=== PATIENT | female | born 1995 | race Caucasian/White ===

== ENCOUNTER 2016-10-09 10:15 | Emergency (ER) | payer MEDICAID ==
[2016-10-09 10:15] VITALS: BMI 21.2
[2016-10-09 10:47] VITALS: O2SAT 100
[2016-10-09] MEDS ORDERED: Sodium Chloride 0.9% 1,000 ML IV STA (11:53)
[2016-10-09 12:10] LABS: BASO % 0.5 % (0.0-2.0); EOS # 0.1 K/uL (0.0-0.7); EOS % 0.7 % (0.0-4.0); HEMATOCRIT 27.1 % (34.0-47.0); LYMPH # 0.7 K/uL (1.0-4.3); LYMPH % 9.5 % (20.0-40.0); MEAN CELL VOLUME 68.1 fL (81.0-99.0); MEAN CORPUSCULAR HEMOGLOBIN 20.6 pg (27.0-31.0); MEAN CORPUSCULAR HGB CONC 30.3 g/dL (33.0-37.0); MONO # 1.2 K/uL (0.0-0.8); RED CELL DISTRIBUTION WIDTH 17.1 % (11.5-14.5); WHITE BLOOD COUNT 7.8 K/uL (4.8-10.8)
[2016-10-09 12:13] LABS: PLATELET COUNT 292 K/uL (130-400)
[2016-10-09 12:15] LABS: CHLORIDE 102 mmol/L (98-107); POTASSIUM 3.8 mmol/L (3.6-5.2); SODIUM 136 mmol/L (132-148)
[2016-10-09 12:18] LABS: ALB/GLOB RATIO 1.1 (1.0-2.1); ALKALINE PHOSPHATASE 54 U/L (38-126); ALT/SGPT 45 U/L (9-52); AST/SGOT 41 U/L (14-36); BILIRUBIN,TOTAL 0.4 mg/dL (0.2-1.3); BLOOD UREA NITROGEN 13 mg/dL (7-17); CALCIUM 8.2 mg/dl (8.6-10.4); CARBON DIOXIDE 26 mmol/L (22-30); GFR AFRICAN-AMERICAN > 60; GLUCOSE,RANDOM 82 mg/dL (65-105); TOTAL PROTEIN 7.2 g/dL (6.3-8.3)
[2016-10-09 12:39] LABS: BASOPHIL 1 % (0-2); EOSINOPHIL 1 % (0-4); NEUTROPHIL 69 % (50-75); TOTAL CELLS COUNTED 100
[2016-10-09 12:52] LABS: RBC URINE 3 /hpf (0-3); URINE BILIRUBIN NEGATIVE (NEGATIVE); URINE BLOOD NEGATIVE (NEGATIVE); URINE COLOR Yellow (YELLOW); URINE GLUCOSE (UA) NORMAL (Normal); URINE KETONE NEGATIVE (NEGATIVE); URINE LEUKOCYTE ESTERASE NEG Leu/uL (Negative); URINE PROTEIN NEGATIVE (NEGATIVE); URINE UROBILINOGEN NORMAL mg/dL (0.2-1.0); WBC URINE 3 /hpf (0-5)
--- NOTE | 2016-10-09 13:20 | RAD ---
HISTORY: chest pain COMPARISON: Chest x-ray performed 06/07/16 TECHNIQUE: Chest PA and lateral FINDINGS: LUNGS: No focal consolidation. Please note that chest x-ray has limited sensitivity for the detection of pulmonary masses. PLEURA: No significant pleural effusion identified. No definite pneumothorax . CARDIOVASCULAR: The cardiomediastinal silhouette appears within normal limits of size. OSSEOUS STRUCTURES: No acute osseous abnormality identified. VISUALIZED UPPER ABDOMEN: Unremarkable. OTHER FINDINGS: None. IMPRESSION: No focal consolidation, significant pleural effusion, or definite pneumothorax identified.
--- NOTE | 2016-10-09 13:42 | C.PDOC ---
History Of Present Illness 20 yr old female presents to the ER stating she recently came back from vacation in [place] and has not been feeling well ever since. Patient reports of nausea, chest pain, upper abdominal pain and weakness. Patient states she was fine while in [place]. Patient reports history of iron deficiency and is taking iron. Denies fever, chills, vomiting, diarrhea, constipation, neck pain, headache, weakness or numbness. Time Seen by Provider: 10/09/16 11:15 Chief Complaint (Nursing): Dizziness/Lightheaded History Per: Patient History/Exam Limitations: no limitations Onset/Duration Of Symptoms: Days (3) Past Medical History Reviewed: Historical Data, Nursing Documentation, Vital Signs Vital Signs: Last Vital Signs Temp 98.3 F 10/09/16 15:56 Pulse 76 10/09/16 15:56 Resp 18 10/09/16 15:56 BP 104/68 10/09/16 15:56 Pulse Ox 100 10/09/16 15:56 - Medical History PMH: Anemia, Kidney Stones, Chronic Kidney Disease - [facility] Procedures PACKED CELL TRANSFUSION (12/02/13) Family History: States: No Known Family Hx - Social History Hx Tobacco Use: No Hx Alcohol Use: No Hx Substance Use: No - Immunization History Hx Tetanus Toxoid Vaccination: Yes Hx Influenza Vaccination: Yes Hx Pneumococcal Vaccination: No Review Of Systems Except As Marked, All Systems Reviewed And Found Negative. Constitutional: Positive for: Weakness. Negative for: Fever, Chills Cardiovascular: Positive for: Chest Pain Gastrointestinal: Positive for: Nausea, Abdominal Pain (Upper abdomin pain ). Negative for: Vomiting, Constipation Musculoskeletal: Negative for: Neck Pain Neurological: Negative for: Weakness, Numbness, Headache Physical Exam - Physical Exam Appears: Well, Non-toxic, No Acute Distress Skin: Warm, Dry, No Rash Head: Atraumatic, Normacephalic Oral Mucosa: Moist Chest: Symmetrical, No Tenderness Cardiovascular: Rhythm Regular, No Murmur Respiratory: Normal Breath Sounds, No Rales, No Wheezing Gastrointestinal/Abdominal: Soft, Tenderness (Epigastric tenderness ), No Guarding, No Rebound Extremity: Normal ROM, No Swelling ED Course And Treatment - Laboratory Results Result Diagrams: 10/09/16 11:58 10/09/16 11:58 ECG: Interpreted By Me, Viewed By Me ECG Rhythm: Sinus Rhythm ECG Interpretation: Normal Rate From EC (BPM) O2 Sat by Pulse Oximetry: 100 (RA) Pulse Ox Interpretation: Normal - Other Rad CXR X-Ray: Viewed By Me, Read By Radiologist Interpretation: HISTORY: chest pain. COMPARISON: Chest x-ray performed . TECHNIQUE: Chest PA and lateral. FINDINGS: LUNGS: No focal consolidation. Please note that chest x-ray has limited sensitivity for the detection of pulmonary masses. PLEURA: No significant pleural effusion identified. No definite pneumothorax . CARDIOVASCULAR: The cardiomediastinal silhouette appears within normal limits of size. OSSEOUS STRUCTURES: No acute osseous abnormality identified. VISUALIZED UPPER ABDOMEN: Unremarkable. OTHER FINDINGS: None. IMPRESSION: No focal consolidation, significant pleural effusion, or definite pneumothorax identified. - CT Scan/US US - Abdomen Other Rad Studies (CT/US): Read By Radiologist, Radiology Report Reviewed CT/US Interpretation: HISTORY: upper abdominal pain. COMPARISON: Abdominal ultrasound performed 06/07/16. TECHNIQUE: Sonographic evaluation of the right upper quadrant of the abdomen. FINDINGS: LIVER: Measures 16.9 cm in length and appears within normal limits of shape, size, and echotexture. No focal hepatic mass identified. The main portal vein appears patent with normal directional flow. No intrahepatic bile duct dilatation. GALLBLADDER: No gallstones. No gallbladder wall thickening or pericholecystic edema identified. Negative sonographic Morillo's sign as assessed by the business intern. COMMON BILE DUCT: Measures 3 mm. PANCREAS: Not well-visualized. RIGHT KIDNEY: Measures 12.7 x 4.0 x 6.9 cm. No obstructing calculus or hydronephrosis identified. AORTA: Limited visualization appears grossly unremarkable. IVC: Limited visualization appears grossly unremarkable. OTHER FINDINGS: None . IMPRESSION : No acute findings. See above. Medical Decision Making Medical Decision Making: PLAN: * US - Abdomen * CXR * EKG * CBC * CMP * D-Dimer * Troponin * HCG * Urinalysis * Sodium Chloride IV * * * On re-exam patient feels better, tolerates po and is stable to be d/c home with PMD follow up. Copies of all labs and radiology reports were given to the patient. Disposition - Disposition Disposition: HOME/ ROUTINE Disposition Time: 15:43 Condition: STABLE Additional Instructions: Follow up with PMD within 1-2 days. Return to ED if feel worse. Prescriptions: Pantoprazole Sodium [Protonix] 40 mg PO QAM #30 ect Instructions: Epigastric Pain (ED) - Clinical Impression Clinical Impression: Epigastric pain - PA / DIRECTOR OF OCCUPATIONAL HEALTH / Resident Statement MD/DO has reviewed & agrees with the documentation as recorded. - Scribe Statement The provider has reviewed the documentation as recorded by the Scribe Stephanie Zepeda All medical record entries made by the Scribe were at my direction and personally dictated by me. I have reviewed the chart and agree that the record accurately reflects my personal performance of the history, physical exam, medical decision making, and the department course for this patient. I have also personally directed, reviewed, and agree with the discharge instructions and disposition.
--- NOTE | 2016-10-09 14:08 | US ---
HISTORY: upper abdominal pain COMPARISON: Abdominal ultrasound performed 06/07/16 TECHNIQUE: Sonographic evaluation of the right upper quadrant of the abdomen. FINDINGS: LIVER: Measures 16.9 cm in length and appears within normal limits of shape, size, and echotexture. No focal hepatic mass identified. The main portal vein appears patent with normal directional flow. No intrahepatic bile duct dilatation. GALLBLADDER: No gallstones. No gallbladder wall thickening or pericholecystic edema identified. Negative sonographic Morillo's sign as assessed by the blueprint machine operator. COMMON BILE DUCT: Measures 3 mm. PANCREAS: Not well-visualized. RIGHT KIDNEY: Measures 12.7 x 4.0 x 6.9 cm. No obstructing calculus or hydronephrosis identified. AORTA: Limited visualization appears grossly unremarkable. IVC: Limited visualization appears grossly unremarkable. OTHER FINDINGS: None . IMPRESSION: No acute findings. See above.
[2016-10-09 14:27] VITALS: RESP 18
[2016-10-09 15:57] VITALS: BP 104/68; PULSE 76; TEMP 98.3
== END 2016-10-09 16:00 | disposition home or self-care (01) ==
LOC: C.ER 10:15
DX: R10.13 Epigastric pain (principal)
CPT/HCPCS: 71020; 76705; 80053; 81001; 82550; 82553; 84484; 84703; 85025; 85378; 86850; 86900; 96361; 96374; 99285; C9113; J7040

== ENCOUNTER 2016-10-13 17:01 | Emergency (ER) | payer MEDICAID ==
[2016-10-13 17:16] VITALS: BMI 22.0
[2016-10-13 17:17] VITALS: RESP 20
[2016-10-13 18:58] LABS: BASO % 0.8 % (0.0-2.0); EOS % 0.3 % (0.0-4.0); HEMATOCRIT 30.1 % (34.0-47.0); LYMPH # 1.2 K/uL (1.0-4.3); LYMPH % 21.6 % (20.0-40.0); MEAN CELL VOLUME 68.2 fL (81.0-99.0); MEAN CORPUSCULAR HEMOGLOBIN 20.6 pg (27.0-31.0); MEAN CORPUSCULAR HGB CONC 30.2 g/dL (33.0-37.0); MEAN PLATELET VOLUME 9.3 fL (7.2-11.7); MONO # 1.2 K/uL (0.0-0.8); MONO % 21.9 % (0.0-10.0); NRBC % 0.1 % (0.0-2.0); PLATELET COUNT 237 K/uL (130-400); RED CELL DISTRIBUTION WIDTH 17.1 % (11.5-14.5); WHITE BLOOD COUNT 5.4 K/uL (4.8-10.8)
[2016-10-13] MEDS ORDERED: Sodium Chloride 0.9% 1,000 ML IV ONE (19:04)
[2016-10-13 19:07] LABS: CHLORIDE 103 mmol/L (98-107); SODIUM 136 mmol/L (132-148)
[2016-10-13 19:09] LABS: ALB/GLOB RATIO 1.1 (1.0-2.1); ALKALINE PHOSPHATASE 50 U/L (38-126); AST/SGOT 38 U/L (14-36); BILIRUBIN,TOTAL 0.4 mg/dL (0.2-1.3); BLOOD UREA NITROGEN 11 mg/dL (7-17); CARBON DIOXIDE 23 mmol/L (22-30); GFR AFRICAN-AMERICAN > 60
[2016-10-13 19:10] LABS: ALT/SGPT 38 U/L (9-52); CALCIUM 8.6 mg/dl (8.6-10.4); GLUCOSE,RANDOM 76 mg/dL (65-105)
[2016-10-13] MEDS ORDERED: Sodium Chloride 0.9% 1,000 ML ONE (19:12)
[2016-10-13 19:13] LABS: RBC URINE 11 /hpf (0-3); URINE BACTERIA RARE (<OCC); URINE BILIRUBIN NEGATIVE (NEGATIVE); URINE BLOOD 1+ (NEGATIVE); URINE COLOR Yellow (YELLOW); URINE GLUCOSE (UA) NORMAL (Normal); URINE KETONE NEGATIVE (NEGATIVE); URINE LEUKOCYTE ESTERASE NEG Leu/uL (Negative); URINE PROTEIN 1+ mg/dL (NEGATIVE); URINE UROBILINOGEN NORMAL mg/dL (0.2-1.0); WBC URINE < 1 /hpf (0-5)
[2016-10-13 19:40] LABS: NEUTROPHIL 68 % (50-75); TOTAL CELLS COUNTED 100
--- NOTE | 2016-10-13 20:01 | C.PDOC ---
Time Seen by Provider: 10/13/16 18:58 Chief Complaint (Nursing): Abdominal Pain History Per: Patient Onset/Duration Of Symptoms: Days (2) Current Symptoms Are (Timing): Still Present Severity: Moderate Location Of Pain/Discomfort: Epigastric Quality Of Discomfort: Unable To Describe Associated Symptoms: Nausea, Vomiting, Diarrhea Exacerbating Factors: Food Alleviating Factors: None Last Bowel Movement: Today Recent travel outside of the [place]: Yes (to [facility]) Additional History Per: Prior Records Past Medical History Reviewed: Historical Data, Nursing Documentation, Vital Signs Vital Signs: Last Vital Signs Temp 98.5 F 10/13/16 17:15 Pulse 95 H 10/13/16 17:15 Resp 20 10/13/16 17:15 BP 120/75 10/13/16 17:15 Pulse Ox 100 10/13/16 17:15 - Medical History PMH: Anemia, Kidney Stones Surgical History: No Surg Hx - [facility] Procedures PACKED CELL TRANSFUSION (12/02/13) Family History: States: Unknown Family Hx - Social History Hx Tobacco Use: No Hx Alcohol Use: No Hx Substance Use: No - Immunization History Hx Tetanus Toxoid Vaccination: Yes Hx Influenza Vaccination: Yes Hx Pneumococcal Vaccination: No Review Of Systems Except As Marked, All Systems Reviewed And Found Negative. Constitutional: Negative for: Fever, Weakness ENT: Positive for: Nose Congestion. Negative for: Throat Pain Cardiovascular: Negative for: Chest Pain Respiratory: Positive for: Cough. Negative for: Shortness of Breath Gastrointestinal: Positive for: Nausea, Vomiting, Abdominal Pain, Diarrhea. Negative for: Melena, Hematochezia, Hematemesis Genitourinary: Negative for: Dysuria Musculoskeletal: Negative for: Neck Pain Skin: Negative for: Rash Neurological: Negative for: Weakness, Numbness, Seizures, Altered Mental Status , Headache Physical Exam - Physical Exam Appears: Non-toxic, No Acute Distress Skin: Normal Color, Warm, Dry, No Rash Head: Atraumatic, Normacephalic Eye(s): bilateral: PERRL, EOMI Neck: Normal ROM, Supple Cardiovascular: Rhythm Regular Respiratory: Normal Breath Sounds, No Accessory Muscle Use Gastrointestinal/Abdominal: Soft, Tenderness (mild epigastric), No Distention, No Guarding, No Rebound Back: No CVA Tenderness Extremity: Normal ROM Neurological/Psych: Oriented x3, Normal Motor, Normal Sensation ED Course And Treatment - Laboratory Results Result Diagrams: 10/13/16 18:53 10/13/16 18:53 Lab Interpretation: No Changes Compared To Prior Results Urine POC: Negative O2 Sat by Pulse Oximetry: 100 Pulse Ox Interpretation: Normal Progress Note: Pt feels much better and wants to go home. No abdominal pain or tenderness. Reassessment Condition: Improved Progress - Interventions Interventions:: Observation, Intravenous fluid - Medications Administered Intravenous: Antiemetic, H-2 morris - Data Reviewed Data Reviewed: Lab, Old records - Patient Status Patient status: Mostly improved - Continuity of Care Discussed patient case with:: Patient, Family-HIPPA compliant, ED Nurse - Patient Plan Patient Plan: Discharge, F/U with PCP, Continue present meds Disposition Counseled Patient/Family Regarding: Studies Performed, Diagnosis, Need For Followup, Rx Given - Disposition Referrals: Neftali Valle MD [Staff Provider] - Disposition: HOME/ ROUTINE Disposition Time: 20:01 Condition: IMPROVED Additional Instructions: Follow up with your doctor. Drink plenty of fluids. Return to the ER if you develop fever, not tolerating fluids, worsening of symptoms or if you have any other concerns. Prescriptions: Metoclopramide [Reglan] 1 tab PO TID PRN #15 tab PRN Reason: Nausea/Vomiting Instructions: Gastroenteritis (ED) Print Language: TAMAZIGHT - Clinical Impression Clinical Impression: Nausea vomiting and diarrhea, Abdominal pain
[2016-10-13 20:10] VITALS: BP 105/66; PULSE 77; TEMP 98.1; O2SAT 97
== END 2016-10-13 20:09 | disposition home or self-care (01) ==
LOC: C.ER 17:01
DX: R10.13 Epigastric pain (principal); R11.2 Nausea with vomiting, unspecified; R19.7 Diarrhea, unspecified
CPT/HCPCS: 80053; 81001; 83690; 84703; 85025; 87804; 96361; 96374; 96375; 99284; J2765; J7040

== ENCOUNTER 2016-11-08 12:19 | Observation (INO) | payer MEDICAID ==
[2016-11-08 12:19] VITALS: BMI 22.0
--- NOTE | 2016-11-08 13:19 | C.PDOC ---
History Of Present Illness 20 yr old female with PMHx of hypothyroidism, presents to the ER with complaints of dizziness as in weakness and mild headache for the past few days. Patient reports she was seen in ER last week for mild anemia. Patient also reports at times she also has palpitations. Patient denies recent travel, fever , vision changes, chest pain, SOB, nausea, vomiting, weakness or numbness. Time Seen by Provider: 11/08/16 13:02 Chief Complaint (Nursing): Dizziness/Lightheaded History Per: Patient History/Exam Limitations: no limitations Onset/Duration Of Symptoms: Days (Few days) Past Medical History Reviewed: Historical Data, Nursing Documentation, Vital Signs Vital Signs: Last Vital Signs Temp 98.6 F 11/08/16 12:38 Pulse 71 11/08/16 12:38 Resp 18 11/08/16 12:38 BP 124/72 11/08/16 12:38 Pulse Ox 100 11/08/16 14:37 - Medical History PMH: Anemia, Kidney Stones, Chronic Kidney Disease - [facility] Procedures PACKED CELL TRANSFUSION (12/02/13) Family History: States: No Known Family Hx - Social History Hx Tobacco Use: No Hx Alcohol Use: No Hx Substance Use: No - Immunization History Hx Tetanus Toxoid Vaccination: Yes Hx Influenza Vaccination: Yes Hx Pneumococcal Vaccination: No Review Of Systems Except As Marked, All Systems Reviewed And Found Negative. Constitutional: Positive for: Weakness. Negative for: Fever Eyes: Negative for: Vision Change Cardiovascular: Positive for: Palpitations (Occasionally ). Negative for: Chest Pain Gastrointestinal: Negative for: Nausea, Vomiting Neurological: Positive for: Headache (Mild), Dizziness. Negative for: Weakness , Numbness Physical Exam - Physical Exam Appears: Non-toxic, No Acute Distress Skin: Warm, Dry, Pale, No Rash Head: Atraumatic, Normacephalic Eye(s): bilateral: Normal Inspection, PERRL, EOMI Oral Mucosa: Moist Chest: Symmetrical, No Tenderness Cardiovascular: Rhythm Regular, No Murmur Respiratory: Normal Breath Sounds, No Rales, No Rhonchi, No Stridor, No Wheezing Gastrointestinal/Abdominal: Normal Exam, Soft, No Tenderness, No Guarding, No Rebound Extremity: Normal ROM, No Swelling Neurological/Psych: Oriented x3, Normal Speech, Normal Cranial Nerves, Normal Motor ED Course And Treatment - Laboratory Results Result Diagrams: 11/08/16 13:37 11/08/16 13:37 ECG: Interpreted By Me, Viewed By Me ECG Rhythm: Sinus Rhythm ECG Interpretation: Normal Interpretation Of ECG: No ST/T wave changes. Rate From EC (BPM) O2 Sat by Pulse Oximetry: 100 (RA) Pulse Ox Interpretation: Normal Medical Decision Making Medical Decision Making: r/o anemia, other infectious metabolic etiology PLAN: * CXR * EKG * CBC * CMP * HCG * Urinalysis 230: pt with known anemia, now worse than baseline. pt was advised to return to er as she is symptomatic. pt c/o of palpitations, dizziness, wekaness. will transfuse. dr cook accepts. pt agrees to transfusion. pt denies gi bleeding , states "she used ot get heavy periods" and has a "family history of anemiaa" 300: dr cook bedside. accepts pt Disposition - Disposition Disposition: HOSPITALIZED Disposition Time: 14:34 Condition: STABLE - Clinical Impression Clinical Impression: Symptomatic anemia - Scribe Statement The provider has reviewed the documentation as recorded by the Brice Zepeda Provider Attestation: All medical record entries made by the Luchoiblety were at my direction and personally dictated by me. I have reviewed the chart and agree that the record accurately reflects my personal performance of the history, physical exam, medical decision making, and the department course for this patient. I have also personally directed, reviewed, and agree with the discharge instructions and disposition. Decision To Admit - Pt Status Changed To: Hospital Disposition Of: Observation - . Bed Request Type: Regular Admitting Physician: Neftali Cook Patient Diagnosis: Symptomatic anemia
[2016-11-08 13:47] LABS: BASO % 0.6 % (0.0-2.0); EOS % 0.5 % (0.0-4.0); HEMOGLOBIN 8.5 g/dL (11.0-16.0); LYMPH % 16.4 % (20.0-40.0); MEAN CELL VOLUME 67.8 fL (81.0-99.0); MEAN CORPUSCULAR HEMOGLOBIN 20.6 pg (27.0-31.0); MEAN CORPUSCULAR HGB CONC 30.4 g/dL (33.0-37.0); MEAN PLATELET VOLUME 8.8 fL (7.2-11.7); MONO # 0.6 K/uL (0.0-0.8); NEUT # 4.5 K/uL (1.8-7.0); NEUT % 73.5 % (50.0-75.0); RBC 4.1 Mil/uL (3.80-5.20); RED CELL DISTRIBUTION WIDTH 17.8 % (11.5-14.5); WHITE BLOOD COUNT 6.1 K/uL (4.8-10.8)
[2016-11-08 13:54] LABS: INR 1.1; PROTHROMBIN TIME 12.5 SECONDS (9.7-12.2)
[2016-11-08 13:59] LABS: HCG,QUALITATIVE URINE NEGATIVE (NEGATIVE)
[2016-11-08 14:01] LABS: ALB/GLOB RATIO 1.1 (1.0-2.1); AST/SGOT 23 U/L (14-36); GFR AFRICAN-AMERICAN > 60; GFR NON-AFRICAN AMERICAN > 60
[2016-11-08 14:02] LABS: ALT/SGPT 20 U/L (9-52); BLOOD UREA NITROGEN 13 mg/dL (7-17); CALCIUM 8.9 mg/dl (8.6-10.4)
[2016-11-08 14:08] LABS: SQUAMOUS EPITHIAL 5 /hpf (0-5); URINE BILIRUBIN NEGATIVE (NEGATIVE); URINE BLOOD 1+ (NEGATIVE); URINE CLARITY Hazy (Clear); URINE COLOR Yellow (YELLOW); URINE GLUCOSE (UA) NORMAL (Normal); URINE LEUKOCYTE ESTERASE NEG Leu/uL (Negative); URINE NITRATE NEGATIVE (NEGATIVE); URINE PROTEIN NEGATIVE (NEGATIVE); URINE UROBILINOGEN NORMAL mg/dL (0.2-1.0)
--- NOTE | 2016-11-08 15:37 | RAD ---
PROCEDURE: CHEST RADIOGRAPH, 1 VIEW HISTORY: SOB COMPARISON: None available. FINDINGS: LUNGS: Clear. PLEURA: No pneumothorax or pleural fluid seen. CARDIOVASCULAR: Normal. OSSEOUS STRUCTURES: No significant abnormalities. VISUALIZED UPPER ABDOMEN: Normal. OTHER FINDINGS: None. IMPRESSION: No active disease.
--- NOTE | 2016-11-08 17:45 | CP.PCM.HP ---
History of Present Illness - History of Present Illness History of Present Illness: 20 yr old female with PMHx of hypothyroidism, presents to the ER with complaints of dizziness and weakness, mild headache for the past few days. Patient reports she also has palpitations Patient denies recent travel, fever, vision changes, chest pain, SOB, nausea, vomiting, weakness or numbness. Present on Admission - Present on Admission History of DVT/PE: No History of Uncontrolled Diabetes: No Urinary Catheter: No Decubitus Ulcer Present: No Review of Systems - Constitutional Constitutional: As Per HPI - EENT Eyes: As Per HPI Past Patient History - Past Medical History & Family History Past Medical History?: Yes Past Family History: Reviewed and not pertinent - Past Social History Smoking Status: Never Smoked Chewing Tobacco Use: No Alcohol: None Home Situation {Lives}: With Family - CARDIAC Hx Cardiac Disorders: No Hx Congestive Heart Failure: No - PULMONARY Hx Respiratory Disorders: No - NEUROLOGICAL Hx Neurological Disorder: No - HEENT Hx HEENT Problems: No - RENAL Hx Chronic Kidney Disease: No Hx Dialysis: No Hx Kidney Stones: No - ENDOCRINE/METABOLIC Hx Endocrine Disorders: No - HEMATOLOGICAL/ONCOLOGICAL Hx Anemia: Yes - INTEGUMENTARY Hx Dermatological Problems: No - MUSCULOSKELETAL/RHEUMATOLOGICAL Hx Musculoskeletal Disorders: No Hx Falls: No - GASTROINTESTINAL Hx Gastrointestinal Disorders: No - GENITOURINARY/GYNECOLOGICAL Hx Genitourinary Disorders: No - PSYCHIATRIC Hx Psychophysiologic Disorder: No Hx Substance Use: No - SURGICAL HISTORY Hx Surgeries: No - ANESTHESIA Hx Anesthesia: No Hx Anesthesia Reactions: No Meds Allergies/Adverse Reactions: Allergies Allergy/AdvReac Type Severity Reaction Status Date / Time aspirin Allergy Severe RASH Verified 10/13/16 17:15 sodium ferric gluconate Allergy Severe SWELLING Verified 10/13/16 17:15 complex [From Ferrlecit] sucrose [From Ferrlecit] Allergy Severe SWELLING Verified 10/13/16 17:15 morphine AdvReac Severe HEADACHE Verified 10/13/16 17:15 metoclopramide [From Reglan] AdvReac Unknown Verified 11/08/16 12:43 Physical Exam - Head Exam Head Exam: ATRAUMATIC, NORMAL INSPECTION, NORMOCEPHALIC - Eye Exam Eye Exam: EOMI, Normal appearance, PERRL Pupil Exam: NORMAL ACCOMODATION, PERRL Results - Vital Signs Recent Vital Signs: Last Vital Signs Temp 98.3 F 11/08/16 17:22 Pulse 65 07/08/17 17:22 Resp 18 11/08/16 17:22 BP 110/68 11/08/16 17:22 Pulse Ox 100 11/08/16 17:22 - Labs Result Diagrams: 11/09/16 07:40 11/09/16 07:40 Assessment & Plan (1) Anemia Assessment and Plan: will transfuse 1 unit of PRBC and repeat labs in am Status: Acute - Date & Time Date: 11/08/16 Time: 13:00
[2016-11-08 18:00] VITALS: RESP 20
[2016-11-09 00:59] VITALS: BP 104/63; PULSE 70; TEMP 98.4; O2SAT 99
[2016-11-09] MEDS ORDERED: Levothyroxine 50 MCG TAB PO SCH (06:30)
[2016-11-09 07:53] LABS: BASO % 0.7 % (0.0-2.0); EOS # 0.1 K/uL (0.0-0.7); LYMPH # 1.6 K/uL (1.0-4.3); MONO # 0.8 K/uL (0.0-0.8); NEUT # 3.8 K/uL (1.8-7.0); RED CELL DISTRIBUTION WIDTH 19.4 % (11.5-14.5)
[2016-11-09 08:01] LABS: EOS % 1.7 % (0.0-4.0); LYMPH % 24.9 % (20.0-40.0); MEAN CORPUSCULAR HEMOGLOBIN 22.4 pg (27.0-31.0); MEAN CORPUSCULAR HGB CONC 31.4 g/dL (33.0-37.0); MEAN PLATELET VOLUME 9.3 fL (7.2-11.7); MONO % 13.4 % (0.0-10.0); NEUT % 59.3 % (50.0-75.0); WHITE BLOOD COUNT 6.3 K/uL (4.8-10.8)
[2016-11-09 08:03] LABS: GFR AFRICAN-AMERICAN > 60; GFR NON-AFRICAN AMERICAN > 60
[2016-11-09 08:04] LABS: BLOOD UREA NITROGEN 14 mg/dL (7-17); CALCIUM 8.8 mg/dl (8.6-10.4)
[2016-11-09 08:08] LABS: MEAN CELL VOLUME 71.3 fL (81.0-99.0)
[2016-11-09] MEDS ORDERED: Pneumococcal 23-Valent Vaccine IM ONE (10:00)
--- NOTE | 2016-11-09 10:10 | US ---
Pelvic ultrasound History: Pelvic pain. Comparison: None available. Technique: Real-time sonography was performed through the pelvis utilizing transabdominal and transvaginal techniques. Findings: Uterus: 7.3 x 3.9 x 4.3 centimeters. Heterogeneous echotexture. Anteverted. Endometrium measures 6 millimeters, within normal limits. Small amount of free fluid within the pelvic cul-de-sac. Right ovary: 2.9 x 1.8 x 2.6 centimeters. Normal flow. Left ovary: 3.1 x 1.2 x 2.4 centimeters. Normal flow. Impression: Small amount of free fluid within the pelvic cul-de-sac. Otherwise unremarkable sonographic evaluation of the pelvis.
--- NOTE | 2016-11-09 13:51 | CP.PCM.PN ---
Subjective - Date & Time of Evaluation Date of Evaluation: 11/09/16 Time of Evaluation: 13:20 - Subjective Subjective: oatient sen and examined . Patient denie SOB CP Palpitation - dizziness. Objective - Vital Signs/Intake and Output Vital Signs (last 24 hours): Temp Pulse Resp BP Pulse Ox 98.4 F 70 20 104/63 99 11/09/16 00:00 11/09/16 00:00 11/09/16 00:00 11/09/16 00:00 11/09/16 00:00 Intake and Output: 11/09/16 11/09/16 06:59 18:59 Intake Total 1010 Balance 1010 - Medications Medications: Current Medications Levothyroxine Sodium (Synthroid) 50 mcg PO DAILY@0630 [facility] Last Admin: 11/09/16 06:02 Dose: 50 mcg - Labs Labs: 11/09/16 07:40 11/09/16 07:40 PT 12.5 SECONDS (9.7-12.2) H 11/08/16 13:37 INR 1.1 11/08/16 13:37 APTT 29 SECONDS (21-34) 11/08/16 13:37 - Constitutional Appears: Well - Head Exam Head Exam: NORMAL INSPECTION - Eye Exam Eye Exam: Normal appearance - ENT Exam ENT Exam: Normal Exam - Neck Exam Neck Exam: Full ROM - Respiratory Exam Respiratory Exam: Clear to Ausculation Bilateral, NORMAL BREATHING PATTERN - Cardiovascular Exam Cardiovascular Exam: REGULAR RHYTHM - GI/Abdominal Exam GI & Abdominal Exam: Normal Bowel Sounds - Rectal Exam Rectal Exam: Deferred - Extremities Exam Extremities Exam: Full ROM - Back Exam Back Exam: NORMAL INSPECTION - Neurological Exam Neurological Exam: Normal Gait (patient will be discharged today FU in office in 1 week) Assessment and Plan (1) Anemia Status: Acute
--- NOTE | 2016-11-12 14:57 | CARD ---
APPROVED REPORT EKG Measurement Heart [id number] <Conclusion> Normal sinus rhythm Normal ECG
== END 2016-11-09 14:49 | disposition home or self-care (01) ==
LOC: C.ER 12:19 → C.9E 14:35 → C.3T 16:59
PROVIDERS: ADMIT Specialist; ATTEND Specialist
DX: D64.9 Anemia, unspecified (principal); E03.9 Hypothyroidism, unspecified; N18.9 Chronic kidney disease, unspecified; Z87.442 Personal history of urinary calculi; R42 Dizziness and giddiness
CPT/HCPCS: 36415; 36430; 71010; 76830; 76856; 80048; 80053; 81001; 82948; 84703; 85025; 85610; 85730; 86850; 86900; 86905; 86920; 86922; 99285; G0378; P9051

== ENCOUNTER 2017-07-10 23:27 | Emergency (ER) | payer MEDICAID ==
[2017-07-10 23:30] VITALS: BMI 22.0
[2017-07-10 23:39] VITALS: BP 136/69; PULSE 78; RESP 14; TEMP 98.2; O2SAT 98
--- NOTE | 2017-07-11 00:21 | C.PDOC ---
History Of Present Illness The patient reports that one week ago a door slammed on her finger 1 week ago. Patient reports that she is having difficulty moving the finger and constant pain which prompted visit. Denies fever, numbness, weakness. Time Seen by Provider: 07/10/17 23:42 Chief Complaint (Nursing): Finger,Hand,&Wrist Past Medical History Vital Signs: Last Vital Signs Temp 98.2 F 07/10/17 23:36 Pulse 78 07/10/17 23:36 Resp 14 07/10/17 23:36 BP 136/69 07/10/17 23:36 Pulse Ox 98 07/12/17 11:51 - Medical History PMH: Anemia Denies: CHF, Kidney Stones, Chronic Kidney Disease - [facility] Procedures PACKED CELL TRANSFUSION (12/02/13) Family History: States: No Known Family Hx - Social History Hx Tobacco Use: No Hx Alcohol Use: No Hx Substance Use: No - Immunization History Hx Tetanus Toxoid Vaccination: Yes Hx Influenza Vaccination: Yes Hx Pneumococcal Vaccination: No Review Of Systems Constitutional: Negative for: Fever, Weakness Musculoskeletal: Positive for: Other (finger pain) Neurological: Negative for: Weakness, Numbness Physical Exam - Physical Exam Appears: Non-toxic, No Acute Distress Skin: Normal Color, Warm, No Rash Head: Atraumatic, Normacephalic Eye(s): bilateral: Normal Inspection Oral Mucosa: Moist Extremity: Capillary Refill (< 2 sec), Other ((+) mild swelling and tenderness of the PIP joint of the right index finger. Limited ROM secondary to pain. Other fingers and wrists are normal) Extremity: Bilateral: Normal Color And Temperature Pulses: Left Radial: Normal, Right Radial: Normal Neurological/Psych: Oriented x3, Normal Motor, Normal Sensation Gait: Steady ED Course And Treatment O2 Sat by Pulse Oximetry: 98 (on RA) Pulse Ox Interpretation: Normal Medical Decision Making Medical Decision Making: Finger xrays shows (+) healing avulsion fx of PIP joint. Finger splint was applied by me, finger remains neurovascularly intact. Disposition - Disposition Referrals: Uday Malagon MD [Staff Provider] - Disposition: HOME/ ROUTINE Disposition Time: 00:21 Condition: STABLE Additional Instructions: Follow up with the Hand doctor within 1-2 days, Return if worsened, Instructions: Finger Fracture Forms: [employer] ([place]), Work Excuse - Clinical Impression Clinical Impression: Finger fracture
--- NOTE | 2017-07-11 08:29 | RAD ---
PROCEDURE: Right Index finger radiographs. HISTORY: r/o fx COMPARISON: None available. TECHNIQUE: AP radiograph of the right hand, as well as spot oblique and lateral images of index finger were obtained. FINDINGS: RIGHT INDEX FINGER: Tiny ossific density noted at the level of the distal 2nd PIP medial aspect likely due to remote injury. No acute displaced fracture appreciated. Remainder of the right hand (as seen on the AP view) grossly intact. JOINTS: No dislocation. SOFT TISSUES: Unremarkable. No evidence of radiopaque foreign body. OTHER FINDINGS: None. IMPRESSION: Tiny ossific density noted at the level of the distal 2nd PIP medial aspect likely due to remote injury. No acute displaced fracture appreciated. Recommend correlation with physical exam
== END 2017-07-11 00:26 | disposition home or self-care (01) ==
LOC: C.ER 23:27
DX: S62.600A Fracture of unspecified phalanx of right index finger, initial encounter for closed fracture (principal); W23.0XXA Caught, crushed, jammed, or pinched between moving objects, initial encounter

== ENCOUNTER 2017-08-03 12:39 | Emergency (ER) | payer MEDICAID ==
[2017-08-03 12:39] VITALS: BMI 22.0
[2017-08-03 12:52] VITALS: BP 111/68; PULSE 89; RESP 18; TEMP 98; O2SAT 99
[2017-08-03 13:31] LABS: BASO # 0.1 K/uL (0.0-0.2); BASO % 0.9 % (0.0-2.0); EOS % 0.6 % (0.0-4.0); HEMOGLOBIN 8.2 g/dL (11.0-16.0); LYMPH # 1.2 K/uL (1.0-4.3); LYMPH % 18.5 % (20.0-40.0); MEAN CORPUSCULAR HEMOGLOBIN 20.4 pg (27.0-31.0); MEAN CORPUSCULAR HGB CONC 31.2 g/dL (33.0-37.0); MEAN PLATELET VOLUME 8.7 fL (7.2-11.7); MONO # 0.5 K/uL (0.0-0.8); MONO % 8.2 % (0.0-10.0); NEUT # 4.6 K/uL (1.8-7.0); NEUT % 71.8 % (50.0-75.0); RBC 4.03 Mil/uL (3.80-5.20); RED CELL DISTRIBUTION WIDTH 17.3 % (11.5-14.5); WHITE BLOOD COUNT 6.4 K/uL (4.8-10.8)
[2017-08-03 13:35] LABS: HCG,QUALITATIVE URINE NEGATIVE (NEGATIVE)
[2017-08-03 13:39] LABS: SQUAMOUS EPITHIAL 5 /hpf (0-5); URINE BACTERIA RARE (<OCC); URINE BILIRUBIN NEGATIVE (NEGATIVE); URINE BLOOD 2+ (NEGATIVE); URINE CLARITY Hazy (Clear); URINE COLOR Yellow (YELLOW); URINE GLUCOSE (UA) NORMAL (Normal); URINE LEUKOCYTE ESTERASE NEG Leu/uL (Negative); URINE PROTEIN 1+ mg/dL (NEGATIVE)
[2017-08-03 13:41] LABS: MEAN CELL VOLUME 65.5 fL (81.0-99.0)
[2017-08-03 13:43] LABS: INR 1.1; PROTHROMBIN TIME 12.6 SECONDS (9.7-12.2)
[2017-08-03 13:53] LABS: ALBUMIN 4.2 g/dL (3.5-5.0); ALT/SGPT 15 U/L (9-52); AST/SGOT 26 U/L (14-36); BLOOD UREA NITROGEN 10 mg/dL (7-17); CALCIUM 8.9 mg/dl (8.6-10.4); GFR AFRICAN-AMERICAN > 60; GFR NON-AFRICAN AMERICAN > 60
[2017-08-03 13:56] LABS: BARBITURATES, UR NEGATIVE (NEGATIVE); BENZODIAZEPINES, UR NEGATIVE (NEGATIVE); OPIATES, UR NEGATIVE (NEGATIVE); PHENCYCLIDINE, UR NEGATIVE (NEGATIVE)
--- NOTE | 2017-08-03 14:01 | C.PDOC ---
History Of Present Illness 21 year old female with PMHx of iron deficiency anemia, 46 prior ED visits and 5 drug allergies presents to the ED requesting a test. Patient not sure if she is having her period or if she is . Patient denies abdominal pain, significant vaginal bleeding. Patient is currently c/o typical anemia symptoms, does not related any significant blood loss. Patient is asking for transvaginal US prior to verifying recent . Patient is argumentative but AOx3. Patient was supposed to go to Dr. Valle office today but came to the ED thinking she will be seen faster. Patient refused chest, abdominal exam also refused EKG, CXR. Time Seen by Provider: 08/03/17 13:07 Chief Complaint (Nursing): Female Genitourinary History Per: Patient History/Exam Limitations: no limitations Onset/Duration Of Symptoms: Days Current Symptoms Are (Timing): Still Present Quality Of Discomfort: "Pain" Associated Symptoms: denies: Nausea, Vomiting, Diarrhea, Urinary Symptoms Alleviating Factors: None Recent travel outside of the [place]: No Additional History Per: Patient Abnormal Vaginal Bleeding: No Past Medical History Reviewed: Historical Data, Nursing Documentation, Vital Signs Vital Signs: Last Vital Signs Temp 98 F 08/03/17 12:48 Pulse 89 08/03/17 12:48 Resp 18 08/03/17 12:48 BP 111/68 08/03/17 12:48 Pulse Ox 99 08/03/17 14:31 - Medical History PMH: Anemia Denies: CHF, Kidney Stones, Chronic Kidney Disease Surgical History: No Surg Hx - [facility] Procedures PACKED CELL TRANSFUSION (12/02/13) Family History: States: Unknown Family Hx - Social History Hx Tobacco Use: No Hx Alcohol Use: No Hx Substance Use: No - Immunization History Hx Tetanus Toxoid Vaccination: Yes Hx Influenza Vaccination: Yes Hx Pneumococcal Vaccination: No Review Of Systems Constitutional: Negative for: Fever, Chills Cardiovascular: Negative for: Chest Pain Respiratory: Negative for: Cough, Shortness of Breath Gastrointestinal: Negative for: Nausea, Vomiting, Abdominal Pain Skin: Negative for: Rash Neurological: Negative for: Weakness, Numbness, Headache, Dizziness Physical Exam - Physical Exam Appears: Non-toxic, No Acute Distress Skin: Warm, Dry, Pale Head: Atraumatic, Normacephalic Eye(s): bilateral: Normal Inspection Nose: No Discharge Oral Mucosa: Moist Neck: Normal ROM, Supple Respiratory: Normal Breath Sounds, No Rales, No Rhonchi, No Wheezing Extremity: Normal ROM, No Tenderness, No Swelling Neurological/Psych: Oriented x3 Gait: Steady ED Course And Treatment - Laboratory Results Result Diagrams: 08/03/17 13:26 08/03/17 13:26 O2 Sat by Pulse Oximetry: 99 (On RA) Pulse Ox Interpretation: Normal - Other Rad Obstructive Series X-Ray X-Ray: Viewed By Me, Read By Radiologist Interpretation: PROCEDURE: Radiographs of the chest and abdomen (obstructive series). HISTORY: belly pains. COMPARISON: No prior. TECHNIQUE: AP radiograph of the chest, with upright and supine radiographs of the abdomen. FINDINGS: CHEST: Lungs: Clear. Cardiovascular: Normal size heart. No pulmonary vascular congestion. Pleura: No pleural fluid. No pneumothorax. Other findings: None. ABDOMEN AND PELVIS: Bowel: No evidence of bowel obstruction. Mild retained feces. No masses or abnormal calcifications. No hepatic or splenic enlargement. Free air: None. Bones: Unremarkable. Other findings: None. IMPRESSION: Mild retained feces. Otherwise unremarkable examination. Medical Decision Making Medical Decision Making: Impression: Positive FOS on belly film Patient was argumentative but AOx3, while in the ED is eating a sandwich Patient's labs were reviewed with her but she refuses any further work up. Patient states she will follow up with her PMD. HGB 8.2 from basreline about 9.0 pt declines further w/u and adm for transfusions test NEGATIVE no UTI defer elective pelvic US as no pelvic complaints pt declines pelvic exam. opt f/u. Disposition Doctor Will See Patient In The: Office Counseled Patient/Family Regarding: Studies Performed, Diagnosis - Disposition Referrals: Neftali Valle MD [Staff Provider] - Disposition: HOME/ ROUTINE Disposition Time: 14:00 Condition: GOOD Additional Instructions: hemoglobin 8.[address] Valle for further evaluation test is NEGATIVE No UTI outpatient follow-up for further OBGYN concerns. Instructions: Tests, Anemia Caused by Low Iron, Adult (DC) Forms: [employer] (Serbian) - Clinical Impression Clinical Impression: Encounter for test, Anxiety, Anemia - Scribe Statement The provider has reviewed the documentation as recorded by the Scribe Ty Olivera All medical record entries made by the Scribe were at my direction and personally dictated by me. I have reviewed the chart and agree that the record accurately reflects my personal performance of the history, physical exam, medical decision making, and the department course for this patient. I have also personally directed, reviewed, and agree with the discharge instructions and disposition.
--- NOTE | 2017-08-03 14:41 | RAD ---
PROCEDURE: Radiographs of the chest and abdomen (obstructive series) HISTORY: belly pains COMPARISON: No prior. TECHNIQUE: AP radiograph of the chest, with upright and supine radiographs of the abdomen. FINDINGS: CHEST: Lungs: Clear. Cardiovascular: Normal size heart. No pulmonary vascular congestion. Pleura: No pleural fluid. No pneumothorax. Other findings: None. ABDOMEN AND PELVIS: Bowel: No evidence of bowel obstruction. Mild retained feces. No masses or abnormal calcifications. No hepatic or splenic enlargement. Free air: None. Bones: Unremarkable. Other findings: None. IMPRESSION: Mild retained feces. Otherwise unremarkable examination.
== END 2017-08-03 14:06 | disposition home or self-care (01) ==
LOC: C.ER 12:39
DX: Z32.02 Encounter for pregnancy test, result negative (principal); F41.9 Anxiety disorder, unspecified; D64.9 Anemia, unspecified

== ENCOUNTER 2018-02-02 11:00 | Emergency (ER) | payer BC, MEDICAID ==
[2018-02-02 11:00] VITALS: BMI 22.0
[2018-02-02 11:14] VITALS: TEMP 98.8; O2SAT 100
--- NOTE | 2018-02-02 11:27 | C.PDOC ---
History Of Present Illness 22 Y/O FEMALE PRESENTS TO ED FOR EVALUATION OF POSSIBLE RECURRENT ANEMIA. PATIENT STATES SHE HAS HISTORY OF CHRONIC IRON DEFICIENCY ANEMIA, COMPLIANT WITH IRON SUPPLEMENTS. PATIENT BLOOD TESTED 12/2017 BUT WAS UNREACHABLE DUE TO VACATION. SAW PMD 01/28 FOR REPEAT CBC BUT DOESN'T KNOW RESULT. PATIENT ADMITS TO GENERALIZED WEAKNESS, LIGHTHEADEDNESS "BUT I ALWAYS FEEL THAT WAY". LMP 01/22. NO ABD PAIN, GI BLEED. HO PRIOR TRANSFUSIONS. PS BASELINE HCT "AROUND 9-10" EXAM NONTOXI HEENT NO PALLOR ABD NEG REMAINDER NEG Time Seen by Provider: 02/02/18 11:16 Chief Complaint (Nursing): Dizziness/Lightheaded History Per: Patient History/Exam Limitations: no limitations Onset/Duration Of Symptoms: Days Current Symptoms Are (Timing): Still Present Past Medical History Reviewed: Historical Data, Nursing Documentation, Vital Signs Vital Signs: Last Vital Signs Temp 98.8 F 02/02/18 11:05 Pulse 74 02/02/18 11:05 Resp 20 02/02/18 11:05 BP 116/77 02/02/18 11:05 Pulse Ox 100 02/02/18 11:05 - Medical History PMH: Anemia Surgical History: No Surg Hx - [facility] Procedures PACKED CELL TRANSFUSION (12/02/13) Family History: States: No Known Family Hx - Social History Hx Tobacco Use: No Hx Alcohol Use: No Hx Substance Use: No - Immunization History Hx Tetanus Toxoid Vaccination: Yes Hx Influenza Vaccination: Yes Hx Pneumococcal Vaccination: No Review Of Systems Constitutional: Positive for: Weakness. Negative for: Fever, Chills Cardiovascular: Positive for: Light Headedness. Negative for: Chest Pain Respiratory: Negative for: Cough, Shortness of Breath Gastrointestinal: Negative for: Nausea, Vomiting, Abdominal Pain, Hematochezia Skin: Negative for: Rash Physical Exam - Physical Exam Appears: Non-toxic, No Acute Distress Skin: Warm, Dry, No Rash Head: Atraumatic, Normacephalic Eye(s): bilateral: PERRL, EOMI Oral Mucosa: Moist Neck: Normal ROM, Supple Cardiovascular: Rhythm Regular Respiratory: Normal Breath Sounds, No Rales, No Rhonchi, No Wheezing Gastrointestinal/Abdominal: Soft, No Tenderness, No Guarding, No Rebound Back: No CVA Tenderness Neurological/Psych: Oriented x3, Normal Speech, Normal Cognition, Normal Motor, Normal Sensation ED Course And Treatment - Laboratory Results Result Diagrams: 02/02/18 11:47 O2 Sat by Pulse Oximetry: 100 (RA) Pulse Ox Interpretation: Normal Disposition Counseled Patient/Family Regarding: Studies Performed, Diagnosis, Need For Followup - Disposition Referrals: YOUR,PMD [Other] Disposition: HOME/ ROUTINE Disposition Time: 12:25 Condition: IMPROVED Instructions: Anemia Caused by Low Iron, Adult (DC) Forms: [employer] (Macedonian) - Clinical Impression Clinical Impression: Chronic anemia - Scribe Statement The provider has reviewed the documentation as recorded by the Scriblety Matthews All medical record entries made by the Luchoiblety were at my direction and personally dictated by me. I have reviewed the chart and agree that the record accurately reflects my personal performance of the history, physical exam, medical decision making, and the department course for this patient. I have also personally directed, reviewed, and agree with the discharge instructions and disposition.
[2018-02-02 11:55] LABS: MEAN CORPUSCULAR HEMOGLOBIN 22.2 pg (27.0-31.0); MEAN CORPUSCULAR HGB CONC 32.1 g/dL (33.0-37.0); RBC 4.06 Mil/uL (3.80-5.20); RED CELL DISTRIBUTION WIDTH 24.5 % (11.5-14.5); WHITE BLOOD COUNT 6.7 K/uL (4.8-10.8)
[2018-02-02 12:38] VITALS: BP 118/73; PULSE 75; RESP 18
== END 2018-02-02 12:40 | disposition home or self-care (01) ==
LOC: C.ER 11:00
DX: D64.9 Anemia, unspecified (principal)

== ENCOUNTER 2018-10-02 07:07 | Emergency (ER) | payer BC ==
[2018-10-02 07:08] VITALS: BMI 22.0
[2018-10-02] MEDS ORDERED: Sodium Chloride 0.9% 1,000 ML IV ONE ×3 (07:25→08:56)
--- NOTE | 2018-10-02 07:36 | C.PDOC ---
History Of Present Illness 22 year old female presents to the ED BIBA for evaluation of chest pain since waking up this morning. It is associated with cough and some blood in the sputum. Also reports she was shaky at home. Patient is febrile upon arrival with Temperature of 103. Pt was seen in the ED 2 days for chest pain and work-up was unremarkable. Denies any leg swelling, palpitations, shortness of breath, dizziness, lightheadedness, nausea, vomiting, or abdominal pain. Time Seen by Provider: 10/02/18 07:16 Chief Complaint (Nursing): Flu-like Symptoms History Per: Patient History/Exam Limitations: no limitations Onset/Duration Of Symptoms: Days Current Symptoms Are (Timing): Still Present Severity: Mild Reports Recently: Seen In ED Past Medical History Reviewed: Historical Data, Nursing Documentation, Vital Signs Vital Signs: Last Vital Signs Temp 103.1 F H 10/02/18 07:07 Pulse 124 H 10/02/18 07:07 Resp 15 10/02/18 07:07 BP 136/84 10/02/18 07:07 Pulse Ox 100 10/02/18 07:07 Primary Care Provider: FAMILY PROVIDER,NO - Medical History PMH: Anemia Surgical History: No Surg Hx - [facility] Procedures PACKED CELL TRANSFUSION (12/02/13) Family History: States: No Known Family Hx - Social History Hx Tobacco Use: No Hx Alcohol Use: No Hx Substance Use: No - Immunization History Hx Tetanus Toxoid Vaccination: Yes Hx Influenza Vaccination: Yes Hx Pneumococcal Vaccination: No Review Of Systems Except As Marked, All Systems Reviewed And Found Negative. Constitutional: Positive for: Fever Cardiovascular: Positive for: Chest Pain Respiratory: Positive for: Cough, Sputum. Negative for: Shortness of Breath Gastrointestinal: Negative for: Nausea, Vomiting, Abdominal Pain Physical Exam - Physical Exam Appears: Non-toxic, No Acute Distress Skin: Warm, Dry Head: Normacephalic Eye(s): bilateral: Normal Inspection Nose: Normal Oral Mucosa: Moist Neck: Supple Chest: Symmetrical Cardiovascular: Rhythm Regular, Other (Tachycardic ) Respiratory: Normal Breath Sounds Gastrointestinal/Abdominal: Soft, No Tenderness Extremity: Normal ROM, No Pedal Edema Neurological/Psych: Oriented x3, Normal Speech Gait: Steady ED Course And Treatment - Laboratory Results Result Diagrams: 10/02/18 07:57 10/02/18 07:57 Lab Interpretation: Normal Urine POC: Negative ECG: Interpreted By Me ECG Rhythm: Sinus Tachycardia ECG Interpretation: No Acute Changes O2 Sat by Pulse Oximetry: 100 (RA) Pulse Ox Interpretation: Normal - Radiology CXR: Interpreted by Me CXR Interpretation: Yes: No Acute Disease - Other Rad CXR X-Ray: Viewed By Me, Read By Radiologist Interpretation: Accession No. : [id number]. Patient Name / ID : MENDOZA BAUER R / [id number]. Exam Date : 10/02/2018 07:29:23 ( Approved ). Study Comment : Sex / Age : F / 22Y. Creator : Parish Contreras MD. Dictator : Parish Contreras MD. Assistant Head Cashier : Turbine Blade Assembler : Parish Contreras MD. Approver2 : Report Date : 10/02/2018 08:29:44. My Comment : . Chest x-ray two views. HISTORY: Cough. COMPARISON: None available. FINDINGS: No focal infiltrate or effusion. Small nodular density at the left costophrenic angle may represent confluence of shadows with ribs and vessels. Bibasilar breast and nipple shadows. Heart size within normal limits. Impression: No focal infiltrate or effusion. Progress Note: Treated with IVF NSS x 2 liters. Treated with tylenol and motrin. Flu test (-). On re-evaluation lungs clear abdomen soft Reassessment Condition: Improved Medical Decision Making Medical Decision Making: Plan - EKG - CXR - Bloodwork - Tylenol 975mg PO - IV fluids - UA - HCG Disposition Counseled Patient/Family Regarding: Studies Performed, Diagnosis, Need For Followup, Rx Given - Disposition Referrals: Neftali Valle MD [Staff Provider] - Disposition: HOME/ ROUTINE Disposition Time: 10:00 Condition: IMPROVED Additional Instructions: Tylenol or motrin as needed for fever Return to ED if any increase symptom Follow up with your PMD for further evaluation Instructions: Fever, Adult (DC) Forms: [facility] (Lithuanian) - POA Present On Arrival: None - Clinical Impression Clinical Impression: Influenza-like illness, Viral illness - PA / PROGRAM DIRECTOR SUBSTANCE ABUSE / Resident Statement MD/DO has reviewed & agrees with the documentation as recorded. - Scribe Statement The provider has reviewed the documentation as recorded by the Scribe Luiza Delgado All medical record entries made by the Scribe were at my direction and personally dictated by me. I have reviewed the chart and agree that the record accurately reflects my personal performance of the history, physical exam, medical decision making, and the department course for this patient. I have also personally directed, reviewed, and agree with the discharge instructions and disposition.
[2018-10-02] MEDS ORDERED: Sodium Chloride 0.9% 1,000 ML ONE ×2 (08:04→08:52)
[2018-10-02 08:10] LABS: BASO % 0.2 % (0.0-2.0); EOS % 0.2 % (0.0-4.0); HEMOGLOBIN 11.5 g/dL (11.0-16.0); LYMPH # 0.6 K/uL (1.0-4.3); LYMPH % 6.3 % (20.0-40.0); MEAN CORPUSCULAR HEMOGLOBIN 27.9 pg (27.0-31.0); MEAN CORPUSCULAR HGB CONC 33.6 g/dL (33.0-37.0); MEAN PLATELET VOLUME 9.5 fL (7.2-11.7); MONO # 0.8 K/uL (0.0-0.8); MONO % 8.4 % (0.0-10.0); NEUT # 7.8 K/uL (1.8-7.0); NEUT % 84.9 % (50.0-75.0); PLATELET COUNT 185 K/uL (130-400); RBC 4.11 Mil/uL (3.80-5.20); RED CELL DISTRIBUTION WIDTH 16.5 % (11.5-14.5)
[2018-10-02 08:19] LABS: WHITE BLOOD COUNT 9.2 K/uL (4.8-10.8)
--- NOTE | 2018-10-02 08:33 | RAD ---
Chest x-ray two views HISTORY: Cough. COMPARISON: None available. FINDINGS: No focal infiltrate or effusion. Small nodular density at the left costophrenic angle may represent confluence of shadows with ribs and vessels. Bibasilar breast and nipple shadows. Heart size within normal limits. Impression: No focal infiltrate or effusion.
[2018-10-02 08:36] LABS: SQUAMOUS EPITHIAL 2 /hpf (0-5); URINE BACTERIA RARE (<OCC); URINE BILIRUBIN NEGATIVE (NEGATIVE); URINE BLOOD 2+ (NEGATIVE); URINE CLARITY Hazy (Clear); URINE COLOR Yellow (YELLOW); URINE GLUCOSE (UA) NORMAL (Normal); URINE LEUKOCYTE ESTERASE NEG Leu/uL (Negative); URINE PROTEIN NEGATIVE (NEGATIVE); URINE UROBILINOGEN NORMAL mg/dL (0.2-1.0)
[2018-10-02 08:37] LABS: HCG,QUALITATIVE URINE NEGATIVE (NEGATIVE)
[2018-10-02 08:47] LABS: BLOOD UREA NITROGEN 10 mg/dL (7-17); CALCIUM 9.1 mg/dl (8.6-10.4); GFR NON-AFRICAN AMERICAN > 60
[2018-10-02 08:50] LABS: LYMPHOCYTE 7 % (20-40); MONOCYTE 6 % (0-10); NEUTROPHIL 87 % (50-75); TOTAL CELLS COUNTED 100
[2018-10-02 08:51] LABS: LARGE PLATELETS PRESENT; PLATELET ESTIMATE NORMAL (NORMAL)
[2018-10-02 08:52] LABS: ANISOCYTOSIS SLIGHT; HYPOCHROMIC SLIGHT
[2018-10-02 09:43] VITALS: BP 99/56; PULSE 100; RESP 14; TEMP 98.6
[2018-10-02 10:05] VITALS: O2SAT 100
--- NOTE | 2018-10-04 15:56 | CARD ---
APPROVED REPORT Date of service: 10/02/2018 EKG Measurement Heart [id number] <Conclusion> Sinus tachycardia Otherwise normal ECG
== END 2018-10-02 10:27 | disposition home or self-care (01) ==
LOC: C.ER 07:07
DX: J11.1 Influenza due to unidentified influenza virus with other respiratory manifestations (principal); B34.9 Viral infection, unspecified
CPT/HCPCS: 71046; 80048; 81001; 83605; 84703; 85025; 85378; 87804; 93005; 96360; 96361; 99284; J7030